=== PATIENT | female | born 1985 | race Asian ===

== ENCOUNTER → 2016-12-01 | Outpatient (CLI) | payer BC ==
[~2016-12-01] MED LIST: PRENTAB26 PO
[2016-12-01 18:54] LABS: URINE APPEARANCE CLEAR (CLEAR); URINE BILIRUBIN NEG (NEG); URINE COLOR YELLOW; URINE NITRITE NEG (NEG); URINE PH 7.5 (4.5-7.5); URINE SPECIFIC GRAVITY 1.006 (1.000-1.030); UROBILINOGEN NEG (NEG)
[2016-12-01 18:58] LABS: MANUAL MICROSCOPIC REQUIRED? NO; REVIEW REQ? NO
== END | disposition home or self-care (01) ==
LOC: C.LABSPEC 17:49
PROVIDERS: ATTEND Obstetrics & Gynecology
DX: Z34.03 Encounter for supervision of normal first pregnancy, third trimester (principal)

== ENCOUNTER → 2016-12-10 | Outpatient (CLI) | payer BC ==
[2016-12-10 10:01] LABS: HEMATOCRIT 33.2 % (37-47)
== END | disposition home or self-care (01) ==
LOC: C.LAB1850 08:49
PROVIDERS: ATTEND Obstetrics & Gynecology
DX: Z34.03 Encounter for supervision of normal first pregnancy, third trimester (principal)

== ENCOUNTER → 2017-01-19 | Outpatient (CLI) | payer BC | END | disposition home or self-care (01) | LOC: C.LABSPEC 17:57 | PROVIDERS: ATTEND Obstetrics & Gynecology | DX: Z34.03 Encounter for supervision of normal first pregnancy, third trimester (principal) ==

== ENCOUNTER 2017-02-20 14:08 | Inpatient (IN) | payer BC ==
[~2017-02-20] VITALS: Ht 157.5 cm; Wt 64.9 kg
[2017-02-20] MEDS ORDERED: PRENTAB26 PO (15:49)
[2017-02-20 15:50] VITALS: Ht 157.5 cm; Wt 64.9 kg
[2017-02-20] MEDS ORDERED: LACTATED RINGER'S 1000ML 1,000 ML IV PRN (16:40)
[2017-02-20 17:26] LABS: MEAN CORPUSCULAR HEMOGLOBIN 30.8 pg (25-34); MEAN CORPUSCULAR HGB CONC 32.8 g/dl (32-36); MEAN PLATELET VOLUME 12.2 fL (7.4-10.4); PLATELET COUNT 126 K/uL (130-400); RED BLOOD COUNT 4.15 M/uL (4.2-5.4); WHITE BLOOD COUNT 9.94 K/uL (4.8-10.8)
[2017-02-20 17:27] LABS: PLT ESTIMATE NORMAL
[2017-02-20] MEDS ORDERED: MISOPROSTOLTAB 50 MCG TAB PO ONE (18:15)
[2017-02-20] MEDS: LACTATED RINGER'S 1000ML 1,000 ML IV SCH (23:52)
[2017-02-21] MEDS: LACTATED RINGER'S 1000ML 1,000 ML IV SCH ×2 (02:08→09:48)
[2017-02-21] MEDS ORDERED: BUTORPHANOL TARTRATE 1 MG/ML VIAL ONE (02:44)
[2017-02-21] MEDS ORDERED: NURSING VERBAL MED ORDER ONE (02:45)
[2017-02-21] MEDS ORDERED: BUTORPHANOL TARTRATE 1 MG/ML VIAL IV PRN (03:15)
[2017-02-21] MEDS ORDERED: LACTATED RINGER'S 1000ML 500 ML IV PRN ×2 (07:17→11:02)
[2017-02-21] MEDS ORDERED: OXYTOCIN 30 UNITS/500ML NSS IV PRN ×2 (07:30→15:15)
[2017-02-21] MEDS ORDERED: EpHEDrine SULFATE INJ 50 MG/ML AMP ONE (08:56)
[2017-02-21] MEDS ORDERED: BUPIVACAINE 0.25% 30 ML VIAL ONE (08:56)
[2017-02-21] MEDS ORDERED: FENTANYL CITRATE INJ 50 MCG/1 ML 2 ML VIAL ONE (08:57)
[2017-02-21] MEDS ORDERED: FENTANYL 2MCG/ML ROPIV 1.25MG/ML 100ML BAG EPI ONE (08:58)
[2017-02-21] MEDS ORDERED: NALOXONE HCL INJ 1 MG in SODIUM CHLORIDE 0.9% 1000ML 1,000 ML IV PRN (11:02)
[2017-02-21] MEDS ORDERED: ONDANSETRON INJ 2 MG/ML 2 ML VIAL IV PRN (11:15)
[2017-02-21] MEDS ORDERED: FENTANYL 2MCG/ML ROPIV 1.25MG/ML 100ML BAG EPI PRN (11:15)
[2017-02-21] MEDS ORDERED: DiphenhydrAMINE HCL 50 MG/ML VIAL IV PRN (11:15)
[2017-02-21] MEDS ORDERED: NALBUPHINE HCL INJ 10 MG/ML AMP IV PRN (11:15)
[2017-02-21] MEDS ORDERED: NALOXONE HCL INJ 0.4 MG/1 ML VIAL/CARP IV PRN (11:15)
[2017-02-21] MEDS ORDERED: EpHEDrine SULFATE INJ 50 MG/ML AMP IV PRN (11:15)
[2017-02-21] MEDS ORDERED: BENZOCAINE 20% AER SPR 82.5 GM CAN EXT PRN (15:15)
[2017-02-21] MEDS ORDERED: ACETAMINOPHEN 325 MG TAB PO PRN (15:15)
[2017-02-21] MEDS ORDERED: LANOLIN OINT EXT PRN ×2 (15:15)
[2017-02-21] MEDS ORDERED: HYDROCORTISONE ACETATE 25 MG SUPP PR PRN (15:15)
[2017-02-21] MEDS ORDERED: SUPERCREAM 0.870 % 15GM JAR EXT PRN (15:15)
[2017-02-21] MEDS ORDERED: IBUPROFEN 600 MG TAB PO PRN (15:15)
[2017-02-21] MEDS ORDERED: ACETAMINOPHEN/CODEINE 300/30MG TAB PO PRN ×2 (15:15)
[2017-02-21] MEDS ORDERED: OXYCODONE/ACETAMINOPHEN 5-325 TAB PO PRN (15:15)
--- NOTE | 2017-02-21 15:42 | Anesthesia Procedure Note ---
Anesthesia Epidural Removal Nt Date & Time February 21, 2017 at 15:42 Vital Signs Pain Intensity: 0.0 Notes Mental Status: alert / awake / arousable, participated in evaluation Nausea / Vomiting: adequately controlled Pain: adequately controlled Airway Patency, RR, SpO2: stable & adequate BP & HR: stable & adequate Hydration State: stable & adequate Neuraxial Anesthesia: was administered, sensory block is resolving Anesthetic Complications: no major complications apparent, pt satisfied with anesthetic care Epidural: removed without complications, with tip intact
--- NOTE | 2017-02-21 17:05 | DELIVERY SUMMARY ---
DATE OF OPERATION: 02/21/2017 VAGINAL DELIVERY NOTE Jevon presented on February 20 with ruptured membranes. She was induced with oral Cytotec and then Pitocin. Her progress was initially slow, but when she became 4 cm, she requested epidural and then rapidly progressed to fully dilated. She pushed only over a few contractions, delivering a baby in right occiput anterior position. Baby was delivered by gentle traction after suction of mouth and nares. Fluid was generally clear and there was no nuchal cord. No excessive force was used and live vigorous infant. Cord clamped and cut. Cord gases obtained. Cord blood obtained. Placenta was removed in several pieces. I had to do a manual extraction of placenta to ensure all placenta removed. At this stage, there was second degree tear which was repaired with 3-0 Vicryl. Rectal exam was negative for sutures or defect. Sponge and instrument counts correct. Estimated blood loss 400 mL, and IV Pitocin had been started. I attest to the content of the Intraoperative Record and any orders documented therein. Any exceptions are noted below. MTDD
[2017-02-21 18:45] VITALS: BP 90/55; PULSE 118; TEMP 37.2
[2017-02-21] MEDS: DOCUSATE SODIUM 100 MG CAP PO SCH (20:30)
[2017-02-21 23:00] VITALS: BP 101/65; PULSE 101; TEMP 37.2
[2017-02-22 04:30] VITALS: BP 94/59; PULSE 103; TEMP 36.5
--- NOTE | 2017-02-22 07:12 | Progress Note ---
Subjective February 22, 2017. Subjective conversation w/ patient, physical exam, lab review Ambulation: ambulating normally Voiding: no voiding problems Passing Gas: Yes Diet Tolerance: Regular Diet Lochia: Moderate Feeding Type: Breast Feeding Pain: improves with med Comment: Patient was seen at the bedside. No acute event overnight. Review of Systems Constitutional: No fever Respiratory: No cough, No shortness of breath Cardiac: No chest pain Breast: No breast lump Abdomen: No nausea, No pain, No vomiting Female : No dysuria, No urinary frequency Denies headache Objective Vital Signs Date Time Temp Pulse Resp B/P Pulse Ox O2 Delivery O2 Flow Rate FiO2 02/22/17 04:30 36.5 103 20 94/59 Room Air 02/21/17 23:00 37.2 101 18 101/65 Room Air 02/21/17 23:00 Room Air 02/21/17 18:45 37.2 118 20 90/55 Room Air 02/21/17 18:45 Room Air Physical Exam General Appearance: WELL-APPEARING, WD/WN, NO APPARENT DISTRESS Respiratory/Chest: chest non-tender, lungs clear, normal breath sounds, no respiratory distress Cardiovascular: regular rate, rhythm Abdomen: normal bowel sounds, non tender, soft Fundus: Firm, Relation to Umbilicus (at the U) Extremities: non-tender, no pedal edema, no calf tenderness Laboratory Results Last 24 Hours Test 02/22/17 04:44 Medications Current Inpatient Medications Medications (Trade) Dose Ordered Sig/Tanesha Route Start Time Stop Time Status Last Admin Dose Admin Lactated Ringer's (Lr 1000ml) 1,000 ml @ 125 mls/hr Q8H IV 02/20/17 16:40 02/22/17 16:39 02/21/17 09:48 125 MLS/HR Butorphanol Tartrate 1 mg 1 mg Q1H PRN IV 02/21/17 03:15 03/23/17 03:14 Lactated Ringer's (Lr 1000ml) 500 ml @ 999 mls/hr Q31M PRN IV 02/21/17 07:17 03/23/17 07:16 Oxytocin (Pitocin IV) 30 units UD PRN IV 02/21/17 15:15 03/23/17 15:14 Benzocaine (Dermoplast Aero Spr) 1 appln PRN PRN EXT 02/21/17 15:15 03/23/17 15:14 02/21/17 23:13 1 APPLN Cocaine HCl (Supercream 0.870% Cr) BID PRN EXT 02/21/17 15:15 03/07/17 15:14 Hydrocortisone Acetate (Anusol Hc Supp) 25 mg BID PRN NM 02/21/17 15:15 03/23/17 15:14 Lanolin (Lanolin Oint) PRN PRN EXT 02/21/17 15:15 03/23/17 15:14 Prenat Multivit/ Mowing Machine Operator/Iron/Folic Ac ( Vitamin Tab) 1 tab DAILY PO 02/22/17 08:00 03/24/17 07:59 Ibuprofen (Motrin Tab) 600 mg Q4H PRN PO 02/21/17 15:15 03/23/17 15:14 Acetaminophen (Tylenol Tab) 650 mg Q6H PRN PO 02/21/17 15:15 03/23/17 15:14 Acetaminophen/ Codeine Phosphate (Tylenol w/ Codeine #3 Tab) 1 tab Q4H PRN PO 02/21/17 15:15 03/23/17 15:14 Acetaminophen/ Codeine Phosphate (Tylenol w/ Codeine #3 Tab) 2 tab Q4H PRN PO 02/21/17 15:15 03/23/17 15:14 Bisacodyl (Dulcolax Tab) 5 mg 20 PO 02/22/17 20:00 02/22/17 20:01 Bisacodyl (Dulcolax Supp) 10 mg DAILY PRN NM 02/23/17 07:00 02/23/17 07:01 Docusate Sodium (coLACE CAP) 100 mg BID PO 02/21/17 20:00 03/23/17 19:59 02/21/17 20:30 100 MG Assessment and Plan Post- Day#: 1 Continue Routine Care: A/P: This is a 31 y/o female, , s/p normal vaginal delivery. She is ambulating and clinically stable. Plan: - Vitals signs are reviewed and WNL (Tmax 37.2 ) - Last Hgb is 12.8 - Blood type B+, GBS neg, Rubella Immune - Routine care - Encourage ambulation, monitor and control pain with medication as needed , continue with regular diet as tolerated and monitor lochia - Stool softeners and sitz bath recommended - Encourage breast feeding and educate about breast feeding Resident Physician Supervision Note: I interviewed and examined the patient. Discussed with Dr. Qiu and agree with findings and plan as documented in the note. Any exceptions or clarifications are listed here: [None] Documented By: Gordy Damico
[2017-02-22 07:24] VITALS: BP 93/59; PULSE 88; TEMP 36.8; O2SAT 97
[2017-02-22 08:05] LABS: HEMATOCRIT 22.1 % (37-47)
[2017-02-22 08:07] VITALS: O2SAT 97
[2017-02-22] MEDS: DOCUSATE SODIUM 100 MG CAP PO SCH ×2 (08:39→19:54)
[2017-02-22] MEDS: PRENATAL VITAMIN TAB PO SCH (08:39)
[2017-02-22 12:31] VITALS: BP 98/63; PULSE 85; TEMP 36.8; O2SAT 98
[2017-02-22 15:45] VITALS: BP 111/72; PULSE 109; TEMP 36.9; O2SAT 99
[2017-02-22] MEDS ORDERED: BISACODYL 5 MG TABEC PO SCH (20:00)
[2017-02-23 00:01] VITALS: BP 111/66; PULSE 105; TEMP 37; O2SAT 99
--- NOTE | 2017-02-23 06:29 | Discharge Instructions ---
Discharge Instructions Date of Service February 22, 2017. Admission Reason for Admission: R/O Rupture Of Membrane Discharge Discharge Diagnosis / Problem: s/p vaginal delivery Discharge Goals Goal(s): Routine recovery after delivery Medications Continue Dispensed Medications: supercream, dermaplast, tucks, lansinoh Activity Recommendations Activity Limitations: as noted below . Instructions / Follow-Up Instructions / Follow-Up ACTIVITY RECOMMENDATIONS: * Gradual return to full activity over the next 2-3 weeks. * No lifting - nothing heavier than baby over the next 2-3 weeks. * Do not engage in vigorous exercise, sexual activity or sports until cleared by your physician. * Do not drive or operate any motorized equipment until cleared by your physician. * You may shower/bathe daily. MEDICATIONS: For discomfort or pain, you may use Acetaminophen (Tylenol), Ibuprofen (Advil), or Naproxen (Aleve) following the package directions. For constipation you may use Colace following the package directions. BREAST CARE: If you are not breast feeding: * Wear a supportive bra 24 hours a day for one to two weeks. * Avoid stimulating your breasts and nipples as much as possible during the first few weeks after delivery. * When taking a shower, have the warm water hit your back, not breasts. * When your breasts feel full, apply ice packs. Usually three to four times a day helps ease the discomfort. * Take a mild pain medication (Tylenol / Motrin) when you are uncomfortable. If breast feeding: * Use breast milk to lubricate nipples. Lansinoh cream may be used for sore nipples. You do not need to remove cream prior to breast feeding. If using a different brand of cream, check the label for directions regarding removal of cream prior to nursing. * Wear a supportive bra. * If having problems with breasts or breast feeding, call a rural health consultant or your health care provider. EPISIOTOMY CARE: After delivery, if you have an episiotomy (stitches), the following steps will ease discomfort and aid healing. * For the first 24 hours after delivery, place ice packs next to your episiotomy to help reduce swelling. * After the first 24 hour-period, sitz baths, either portable or in the tub, are suggested. A shower with a shower arm sprayed over the episiotomy may be comforting. * [place] care should be done after each voiding and bowel movement. Squirt warm water from a plastic bottle over the perineum (region of the body between the anus and urinary opening) and pat dry. * Use Dermoplast to ease discomfort. Shake container. [place] directly over the episiotomy. Place a Tucks on a clean sanitary pad next to your episiotomy. SPECIAL CARE INSTRUCTIONS: When you are discharged from the hospital, it is important for you to follow the instructions listed below: * During the first week at home, you should be able to care for yourself and your baby. In addition, the usual light household activities are encouraged. * Limit your activities to the way you feel. Do not try to clean the house or move furniture. Be sensible. * If you actively engage in sports and have done so up until the time of your delivery, you may resume these activities as soon as you feel able. This may take up to one month or even longer. Use good judgment. * Continue to take your vitamins for at least six weeks after the of your baby. * Your diet need not be limited unless you were on a special diet before your delivery. Breast-feeding mothers need around 2500 calories per day and at least 64-80 ounces of fluid per day (8 to 10 glasses). * You should eat foods from the four major food groups. Crash diets or fad diets are to be avoided. Eating lean meats, fresh fruits and vegetables, low-fat dairy products, high fiber foods and a regular exercise program, will help you get back to your pre- weight without putting your health at risk. * Constipation is sometimes a problem after delivery. Take a mild laxative as needed. If breast feeding, Milk of Magnesia is acceptable to use. You may use a suppository or Fleets enema if no episiotomy. * A daily shower or tub bath is suggested. Be sure to thoroughly and gently dry the perineum. * A bloody vaginal discharge will usually continue until around four weeks post . A small amount of bleeding may continue for as long as six weeks. Vaginal discharge changes from the bright red bleeding after delivery to pink then brownish and finally yellowish-pink before becoming white and disappearing. * Bleeding may increase with activity. Your first period may come in 4-8 weeks. If you are breast feeding, your period may be delayed even longer. * [place] (sex) can begin whenever both you and your partner feel comfortable and do not have any form of genital infection. It is recommended that you wait at least six weeks for internal and external healing to occur. If you have questions, please talk to your health care practitioner. A condom should be used to prevent infection and . * Foreplay, gentle intercourse and lubrication is very important the first several times to prevent pain. A water-based lubricant such as K-Y jelly or Astroglide may be used. * If you have RH negative blood and your baby is RH positive, you will receive RHOGAM by injection prior to discharge. The nurse will give you a card to keep with you that has the date and place that you received RHOGAM after delivery. * During your care, you had a Rubella screen done to check for the presence of rubella antibodies in your blood. If your test was negative, you will receive a Rubella vaccine prior to discharge. This vaccine may cause a fever, soreness at the injection site and flu-like symptoms. If these symptoms persist, notify your health care practitioner. is not advised for one month after a Rubella vaccine. * Verbalizes understanding of car seat law as reviewed with patient nursing. * Car Seat hand-out given and reviewed with patient by nursing. * Shaken baby information reviewed with patient by nursing. Call you doctor if: * Heavy bleeding (saturating several pads an hour) or passing clots the size of your fist. * A fever >101 degrees F (38.3 degrees C) on two occasions four hours apart and /or chills. * Unusual pain in the pelvic or vaginal areas. * "Baby Blues" lasting longer than two weeks. If you have any questions or concerns, call your health care practitioner at . FOLLOW UP VISIT: * Please call the office at to schedule a 6 week examination. It is important you keep this appointment. It is important for you to make arrangements for either yearly or twice yearly check-ups thereafter. Current Hospital Diet Patient's current hospital diet: Regular OB Diet Discharge Diet Recommended Diet: Regular Diet Pending Studies Studies pending at discharge: no Medical Emergencies . Who to Call and When: Medical Emergencies: If at any time you feel your situation is an emergency, please call [phone] immediately. . Non-Emergent Contact Non-Emergency issues call your: Road Inspector Call Non-Emergent contact if: you have a fever, temperature is above 101 . . "Provider Documentation" section prepared by Shayna Qiu. . VTE Core Measure Inpt VTE Proph given/why not?: Treatment not indicated
--- NOTE | 2017-02-23 06:32 | Progress Note ---
Subjective February 23, 2017. Subjective conversation w/ patient, physical exam, lab review Ambulation: ambulating normally Voiding: no voiding problems Passing Gas: Yes Diet Tolerance: Regular Diet Lochia: Small Feeding Type: Breast Feeding Pain: denies pain Comment: Patient was seen at the bedside. No acute event overnight. Review of Systems Constitutional: No fever Respiratory: No cough, No shortness of breath Cardiac: No chest pain Breast: No breast lump Abdomen: No nausea, No pain, No vomiting Female : No dysuria, No urinary frequency Denies headache Objective Vital Signs Date Time Temp Pulse Resp B/P Pulse Ox O2 Delivery O2 Flow Rate FiO2 02/23/17 00:01 99 Room Air 02/23/17 00:01 37.0 105 20 111/66 99 Room Air 02/22/17 15:45 36.9 109 16 111/72 99 Room Air 02/22/17 15:45 99 Room Air 02/22/17 12:31 36.8 85 14 98/63 98 Room Air 02/22/17 08:07 97 Room Air 02/22/17 07:24 36.8 88 16 93/59 97 Room Air Physical Exam General Appearance: WELL-APPEARING, WD/WN, NO APPARENT DISTRESS Respiratory/Chest: chest non-tender, lungs clear, normal breath sounds, no respiratory distress Cardiovascular: regular rate, rhythm Abdomen: normal bowel sounds, non tender, soft Fundus: Firm, Relation to Umbilicus (at the U) Extremities: non-tender, no pedal edema, no calf tenderness Laboratory Results Last 24 Hours Test 02/22/17 07:00 Hemoglobin 7.3 g/dL Hematocrit 22.1 % Medications Current Inpatient Medications Medications (Trade) Dose Ordered Sig/Tanesha Route Start Time Stop Time Status Last Admin Dose Admin Butorphanol Tartrate 1 mg 1 mg Q1H PRN IV 02/21/17 03:15 03/23/17 03:14 Lactated Ringer's (Lr 1000ml) 500 ml @ 999 mls/hr Q31M PRN IV 02/21/17 07:17 03/23/17 07:16 Oxytocin (Pitocin IV) 30 units UD PRN IV 02/21/17 15:15 03/23/17 15:14 Benzocaine (Dermoplast Aero Spr) 1 appln PRN PRN EXT 02/21/17 15:15 03/23/17 15:14 02/21/17 23:13 1 APPLN Cocaine HCl (Supercream 0.870% Cr) BID PRN EXT 02/21/17 15:15 03/07/17 15:14 Hydrocortisone Acetate (Anusol Hc Supp) 25 mg BID PRN MA 02/21/17 15:15 03/23/17 15:14 Lanolin (Lanolin Oint) PRN PRN EXT 02/21/17 15:15 03/23/17 15:14 Prenat Multivit/ Engineer Soils/Iron/Folic Ac ( Vitamin Tab) 1 tab DAILY PO 02/22/17 08:00 03/24/17 07:59 02/22/17 08:39 1 TAB Ibuprofen (Motrin Tab) 600 mg Q4H PRN PO 02/21/17 15:15 03/23/17 15:14 Acetaminophen (Tylenol Tab) 650 mg Q6H PRN PO 02/21/17 15:15 03/23/17 15:14 Acetaminophen/ Codeine Phosphate (Tylenol w/ Codeine #3 Tab) 1 tab Q4H PRN PO 02/21/17 15:15 03/23/17 15:14 Acetaminophen/ Codeine Phosphate (Tylenol w/ Codeine #3 Tab) 2 tab Q4H PRN PO 02/21/17 15:15 03/23/17 15:14 Bisacodyl (Dulcolax Supp) 10 mg DAILY PRN MA 02/23/17 07:00 02/23/17 07:01 Docusate Sodium (coLACE CAP) 100 mg BID PO 02/21/17 20:00 03/23/17 19:59 02/22/17 19:54 100 MG Assessment and Plan Post- Day#: 2 Continue Routine Care: A/P: This is a 31 y/o female, , s/p normal vaginal delivery. She is ambulating and clinically stable to discharge. - Vital signs are reviewed and WNL (Tmax 37 ) - Last Hgb 7.3 - Blood type B+, GBS neg, Rubella Immune - No signs of depression. - Routine care - Discussed resting, feeding, pain control, mastitis, control, follow up in 6 weeks and reasons to call sooner, if necessary. - Continue with pain medication as needed, and continue vitamins. - Encourage breast feeding and educate about breast feeding - Patient understands and keen for home. - Plan to discharge home Resident Physician Supervision Note: I interviewed and examined the patient. Discussed with Dr. Qiu and agree with findings and plan as documented in the note. Any exceptions or clarifications are listed here: [None] Documented By: Gary Couch
[2017-02-23] MEDS ORDERED: BISACODYL 10 MG SUPP PR PRN (07:00)
[2017-02-23 07:45] VITALS: BP 102/66; PULSE 84; TEMP 36.9; O2SAT 99
[2017-02-23] MEDS: PRENATAL VITAMIN TAB PO SCH (08:57)
[2017-02-23] MEDS: DOCUSATE SODIUM 100 MG CAP PO SCH (08:57)
[2017-02-23 14:07] VITALS: BP_DIAS 66; PULSE 84; TEMP 36.9
== END 2017-02-23 15:20 | disposition home or self-care (01) | DRG 775 ==
LOC: C.OPB 14:08 → C.LD 14:09 → C.OPB 16:41 → C.LD 16:41 → C.OBG 02-21 19:08
PROVIDERS: ADMIT Obstetrics & Gynecology; ATTEND Obstetrics & Gynecology
PROC: 3E033VJ Introduction of Other Hormone into Peripheral Vein, Percutaneous Approach (ICD-10-PCS; principal; 2017-02-21)
PROC: 10E0XZZ Delivery of Products of Conception, External Approach (ICD-10-PCS; principal; 2017-02-21)
PROC: 3E0P7GC Introduction of Other Therapeutic Substance into Female Reproductive, Via Natural or Artificial Opening (ICD-10-PCS; principal; 2017-02-21)
PROC: 0KQM0ZZ Repair Perineum Muscle, Open Approach (ICD-10-PCS; principal; 2017-02-21)
DX: O42.02 Full-term premature rupture of membranes, onset of labor within 24 hours of rupture (principal); O48.0 Post-term pregnancy; O70.1 Second degree perineal laceration during delivery; Z37.0 Single live birth; Z3A.40 40 weeks gestation of pregnancy